=== PATIENT | male | born 1960 | race Caucasian/White ===

== ENCOUNTER 2021-11-29 11:57 | Emergency (ER) | payer OTHER ==
[~2021-11-29] VITALS: Ht 167.6 cm; Wt 90.7 kg
[~2021-11-29 11:57] MED LIST: GLIM4TAB PO; LOSA50TA3 PO; METO25TA3 PO; NEU300 PO; NOR10 PO; OMEP20CA15 PO; ROSU10TA2 PO; VITD2000 PO; Zestoretic PO
[2021-11-29 12:11] VITALS: BP_SYST 182
--- NOTE | 2021-11-29 12:12 | NUR ---
Patient to ER bed 2 for evaluation. Side rails up. Report given to Mathew HAWTHORNE.
[2021-11-29] MEDS ORDERED: NS 500 ML IV ONE (12:15)
--- NOTE | 2021-11-29 12:16 | NUR ---
Pt asked about stuttering and slurred speech-states current speech pattern is normal for him.
--- NOTE | 2021-11-29 12:30 | NUR ---
RECEIVED PT IN BED #2 FROM HOME WITH CC OF COUGH AND FLU LIKE SYMPTOMS FOR THE PAST FEW DAYS. PT IS STABLE, NAD, VSS, AAOX4, AWAITING PLAN OF CARE WITH DISPOSITION.
--- NOTE | 2021-11-29 12:35 | NUR ---
ED MD ZIEGLER AT BEDSIDE
[2021-11-29 12:41] LABS: BASOPHILS % (AUTO) 0.4 % (0.0-2.0); HEMATOCRIT 40.1 % (36-54); HEMOGLOBIN 13.7 g/dL (14.0-18.0); LYMPHOCYTES # (AUTO) 0.5 K/uL (1.0-5.5); LYMPHOCYTES % (AUTO) 5.4 % (20.5-51.5); MEAN CORPUSCULAR HEMOGLOBIN 30 pg (27-31); MEAN CORPUSCULAR HGB CONC 34 % (32-36); MEAN CORPUSCULAR VOLUME 89 fL (79.0-98.0); MONOCYTES # (AUTO) 0.7 K/uL (0.0-1.0); MONOCYTES % (AUTO) 7.7 % (1.7-9.3); NEUTROPHILS # (AUTO) 8.1 K/uL (1.8-7.7); NEUTROPHILS % (AUTO) 86.5 % (40.0-70.0); PLATELET COUNT (AUTO) 176 K/uL (130-430); RED BLOOD CELL COUNT(AUTO) 4.54 MIL/uL (4.2-6.2); RED CELL DISTRIBUTION WIDTH 13.4 % (9.0-15.0); WHITE BLOOD COUNT (AUTO) 9.4 K/uL (4.8-10.8)
[2021-11-29 12:50] VITALS: BP_SYST 160
[2021-11-29 13:28] LABS: CALCIUM 8.3 mg/dL (8.4-11.0); CREATININE 2.12 mg/dL (0.55-1.30); POTASSIUM 3.5 mmol/L (3.5-5.1)
[2021-11-29 13:34] LABS: ALBUMIN 3.1 g/dL (3.4-4.8); TOTAL BILIRUBIN 0.3 mg/dL (0.0-1.0)
[2021-11-29] MEDS ORDERED: NIRM1TAB PO (13:48)
--- NOTE | 2021-11-29 14:03 | NUR ---
Patient given written and verbal discharge instructions and verbalizes understanding. ER MD discussed with patient the results and treatment provided. Patient in stable condition. ID arm band removed. IV catheter removed intact and dressing applied, no active bleeding. Rx given. Patient educated on pain management and to follow up with PMD. Pain Scale 0/10. Opportunity for questions provided and answered. Medication side effect fact sheet provided.
== END 2021-11-29 14:03 | disposition home or self-care (01) ==
LOC: SED 11:57
DX: U07.1 COVID-19 (principal); R05.9 Cough, unspecified; R53.83 Other fatigue; N18.9 Chronic kidney disease, unspecified; E11.22 Type 2 diabetes mellitus with diabetic chronic kidney disease
CPT/HCPCS: 36415; 71045; 80053; 85025; 87426; 96360; 99284; J7030

== ENCOUNTER 2022-05-27 08:38 | Inpatient (IN) | payer OTHER ==
[~2022-05-27] VITALS: Ht 167.6 cm; Wt 99.8 kg
[~2022-05-27 08:38] MED LIST changes: +NIRM1TAB PO
[2022-05-27 08:46] VITALS: BP_SYST 173
--- NOTE | 2022-05-27 09:00 | NUR ---
PT WAS PUT ON BED 8.
[2022-05-27 09:32] LABS: BASOPHILS % (AUTO) 0.3 % (0.0-2.0); HEMATOCRIT 39.2 % (36-54); HEMOGLOBIN 13.6 g/dL (14.0-18.0); LYMPHOCYTES # (AUTO) 0.7 K/uL (1.0-5.5); LYMPHOCYTES % (AUTO) 6.4 % (20.5-51.5); MEAN CORPUSCULAR HEMOGLOBIN 31 pg (27-31); MEAN CORPUSCULAR HGB CONC 35 % (32-36); MEAN CORPUSCULAR VOLUME 88 fL (79.0-98.0); MONOCYTES # (AUTO) 0.5 K/uL (0.0-1.0); MONOCYTES % (AUTO) 4.5 % (1.7-9.3); NEUTROPHILS % (AUTO) 88.8 % (40.0-70.0); PLATELET COUNT (AUTO) 189 K/uL (130-430); RED BLOOD CELL COUNT(AUTO) 4.44 MIL/uL (4.2-6.2); RED CELL DISTRIBUTION WIDTH 12.7 % (9.0-15.0); WHITE BLOOD COUNT (AUTO) 11.2 K/uL (4.8-10.8)
[2022-05-27 09:46] LABS: ANION GAP 12 (5-15); CALCIUM 8.3 mg/dL (8.4-11.0); CHLORIDE 94 mmol/L (98-107); UREA NITROGEN, BLOOD 33 mg/dL (8-21)
[2022-05-27 09:51] LABS: PROTHROMBIN TIME 10.4 SECS (9.5-12.5)
[2022-05-27 09:58] LABS: ALANINE AMINOTRANSFERASE 15 U/L (12-78); ALBUMIN 3.4 g/dL (3.4-4.8); ASPARTATE AMINOTRANSFERASE 23 U/L (10-37); TOTAL BILIRUBIN 0.9 mg/dL (0.0-1.0)
[2022-05-27 10:01] LABS: GFR AFRICAN AMERICAN 39 mL/min (>90)
[2022-05-27 10:02] LABS: GLUCOSE 442 mg/dL (70-99)
--- NOTE | 2022-05-27 10:05 | NUR ---
CTITICAL REPORT: [id number]. ALMEIDA NOTIFIED BEDSIDE STAT.
[2022-05-27 10:14] LABS: BILIRUBIN,URINE NEGATIVE (NEGATIVE); BLOOD, URINE 1+ (NEGATIVE); CLARITY/URINE CLEAR (CLEAR); COLOR,URINE YELLOW (YELLOW); GLUCOSE,URINE 3+ (NEGATIVE); KETONES,URINE TRACE (NEGATIVE); LEUKOCYTE ESTERASE ,URINE NEGATIVE (NEGATIVE); NITRITE, URINE NEGATIVE (NEGATIVE); PROTEIN URINE 3+ (NEGATIVE)
[2022-05-27 10:27] LABS: BACTERIA,URINE RARE /HPF (None Seen); MUCUS,URINE 1+ /LPF (None Seen); RBC,URINE 0-3 /HPF (0-3); WBC,URINE 0-3 /HPF (0-3)
[2022-05-27] MEDS ORDERED: NACL 0.9% 2,000 ML IV ONE (10:45)
[2022-05-27] MEDS ORDERED: PIPERACILLIN/TAZO 3.375 GM in NS 50 ML IV ONE (10:45)
[2022-05-27] MEDS ORDERED: metroNIDAZOLE 500 mg/NS 100 ML IV ONE (10:45)
[2022-05-27] MEDS ORDERED: PIPERACILLIN/TAZOBACTAM 3.375 GM/VIAL (ZOSYN) IV ONE (11:06)
--- NOTE | 2022-05-27 11:23 | NUR ---
Admit bed requested Patient will be admitted to care of . Admitted to M/S unit. Diagnosis DIVERTICULITIS Inpatient (Yes) Observation (No) Orientation concerns or request close to nursing station (No) Covid Status NEG On vent or bipap NO Isolation requirements STANDARD Needs a sitter NO From Home (Yes) Requires Dialysis (No) Med Rec Completed (Yes)
[2022-05-27] MEDS ORDERED: ACETAMINOPHEN 325 MG TABLET PO PRN (11:45)
[2022-05-27] MEDS ORDERED: MORPHINE 2 MG/ML INJ. SYRINGE IVP PRN ×2 (11:45)
[2022-05-27] MEDS ORDERED: DOCUSATE SODIUM 100 MG CAPSULE PO PRN (11:45)
[2022-05-27] MEDS ORDERED: cloNIDine HCL 0.1 MG TABLET PO PRN (11:45)
[2022-05-27] MEDS ORDERED: LORazepam 2 MG/ML VIAL IVP PRN (11:45)
[2022-05-27] MEDS ORDERED: MUPIROCIN 2% TOPICAL OINTMENT 22 GM NS PRN (11:45)
[2022-05-27] MEDS ORDERED: MAGNESIUM SULFATE 50 ML IV PRN (11:45)
[2022-05-27] MEDS ORDERED: DEXTROSE 50% JECT 50 ML DISP.SYRIN IVP PRN (11:45)
--- NOTE | 2022-05-27 13:14 | NUR ---
GOT ROOM 106, SENT PT TO FLOOR WITH EMT. REPORT ENDORSED BEDSIDE TO RN/FLOOR.
--- NOTE | 2022-05-27 13:15 | NUR ---
GI CONSULT CALLED PAG[facility] DANII REILLY AT [phone] SPOKE WITH SIMON DX DIVERTICULITIS.
[2022-05-27] MEDS: INSULIN LISPRO SLIDING SCALE 100 UNITS/ML, 3 ML VIAL (humaLOG) SUBCUT PRN ×2 (13:43→21:10)
[2022-05-27] MEDS: metroNIDAZOLE 500 mg/NS 100 ML IV SCH ×2 (13:45→23:50)
[2022-05-27] MEDS: cefTRIAXone 1 GM IVPB PREMIX 50 ML IV SCH (13:45)
[2022-05-27] MEDS: NACL 0.9% 1,000 ML IV SCH ×2 (13:49→21:11)
[2022-05-27 14:39] VITALS: BP_SYST 146
--- NOTE | 2022-05-27 15:31 | NUR ---
ADMISSION OF A 61 YEAR OLD MALE UNDER THE CARE OF DOCTOR ASHLEY WHO SAYS HE FEELS A SENSE OF COLD ALL THE TIME. HIS PRIMARY DIAGNOSIS IS DIVERTICULITIS. HE IS ON A CLEAR LIQUID DIET WANTS TO ADVANCE HIS DIET OF NOW.
[2022-05-27] MEDS: ONDANSETRON HCL 4 MG/2 ML VIAL IVP PRN (18:23)
[2022-05-27 18:33] VITALS: BP_SYST 154
[2022-05-27 20:30] VITALS: BP_SYST 135
[2022-05-27] MEDS: ZOLPIDEM TARTRATE 5 MG TABLET PO PRN (21:07)
[2022-05-27] MEDS: GABAPENTIN 300 MG CAPSULE PO SCH (21:10)
[2022-05-27] MEDS: HEPARIN SODIUM,PORCINE 5,000 UNITS/ML VIAL SUBCUT SCH (21:12)
--- NOTE | 2022-05-27 21:15 | NUR ---
PATIENT AWAKE ALERT USING URINAL on clear liquid diet po apple juice given per Request comfort measures implemented assist for position change chest movement symmetrical / .
--- NOTE | 2022-05-28 00:07 | NUR ---
Patient asking for AMBIEN for sleep aide and did give 10 MG po per MD order .
[2022-05-28 00:10] VITALS: BP_SYST 141
--- NOTE | 2022-05-28 04:44 | NUR ---
HOURLY ROUNDING patient awake sips of juice po given comfort measures implemented call salvador given to patient .
[2022-05-28] MEDS: metroNIDAZOLE 500 mg/NS 100 ML IV SCH ×3 (05:55→22:11)
[2022-05-28] MEDS: INSULIN LISPRO SLIDING SCALE 100 UNITS/ML, 3 ML VIAL (humaLOG) SUBCUT PRN ×4 (05:59→21:37)
[2022-05-28 07:37] LABS: CALCIUM 8.5 mg/dL (8.4-11.0); CREATININE 1.95 mg/dL (0.55-1.30)
[2022-05-28] MEDS: NACL 0.9% 1,000 ML IV SCH ×2 (07:45→18:50)
[2022-05-28 08:00] VITALS: BP_SYST 145
[2022-05-28 08:24] LABS: BASOPHILS # (AUTO) 0.1 K/uL (0.0-0.2); BASOPHILS % (AUTO) 0.6 % (0.0-2.0); EOSINOPHILS % (AUTO) 0.3 % (0.0-4.0); HEMATOCRIT 36.4 % (36-54); LYMPHOCYTES # (AUTO) 1.3 K/uL (1.0-5.5); MEAN CORPUSCULAR HEMOGLOBIN 31 pg (27-31); MEAN CORPUSCULAR HGB CONC 36 % (32-36); MEAN CORPUSCULAR VOLUME 88 fL (79.0-98.0); MONOCYTES # (AUTO) 0.6 K/uL (0.0-1.0); MONOCYTES % (AUTO) 6.8 % (1.7-9.3); NEUTROPHILS # (AUTO) 7.3 K/uL (1.8-7.7); NEUTROPHILS % (AUTO) 78.3 % (40.0-70.0); PLATELET COUNT (AUTO) 184 K/uL (130-430); RED BLOOD CELL COUNT(AUTO) 4.16 MIL/uL (4.2-6.2); RED CELL DISTRIBUTION WIDTH 12.8 % (9.0-15.0); WHITE BLOOD COUNT (AUTO) 9.3 K/uL (4.8-10.8)
[2022-05-28] MEDS: GABAPENTIN 300 MG CAPSULE PO SCH ×2 (09:46→21:33)
[2022-05-28] MEDS: amLODIPine BESYLATE 10 MG TABLET PO SCH (09:47)
[2022-05-28] MEDS: LOSARTAN POTASSIUM 50 MG TABLET (COZAAR) PO SCH (09:47)
[2022-05-28] MEDS: HEPARIN SODIUM,PORCINE 5,000 UNITS/ML VIAL SUBCUT SCH ×2 (09:50→21:35)
--- NOTE | 2022-05-28 11:36 | NUR ---
CLEANSED AFTER X1 LAURELEA
[2022-05-28] MEDS: POTASSIUM CHLORIDE 20 MEQ TAB.PRT.SR PO PRN (12:04)
[2022-05-28] MEDS: cefTRIAXone 1 GM IVPB PREMIX 50 ML IV SCH (14:15)
[2022-05-28 16:33] VITALS: BP_SYST 124
[2022-05-28] MEDS: ONDANSETRON HCL 4 MG/2 ML VIAL IVP PRN (18:46)
--- NOTE | 2022-05-28 19:51 | NUR ---
PT STILL C/O OF NAUSEA AND DIARRHEA, PT HAD 2X DIARRHEA. GIVEN ZOFRAN. ENDORSED TO NIGHT NURSE.
[2022-05-28 20:00] VITALS: BP_SYST 148
[2022-05-28] MEDS: ZOLPIDEM TARTRATE 5 MG TABLET PO PRN (21:47)
[2022-05-29 00:29] VITALS: BP_SYST 127
[2022-05-29] MEDS: NACL 0.9% 1,000 ML IV SCH ×3 (04:04→17:46)
[2022-05-29] MEDS: INSULIN LISPRO SLIDING SCALE 100 UNITS/ML, 3 ML VIAL (humaLOG) SUBCUT PRN ×4 (06:16→21:45)
[2022-05-29] MEDS: metroNIDAZOLE 500 mg/NS 100 ML IV SCH ×3 (06:17→23:18)
[2022-05-29 06:46] LABS: BASOPHILS % (AUTO) 0.6 % (0.0-2.0); EOSINOPHILS # (AUTO) 0.1 K/uL (0.0-0.4); HEMATOCRIT 38.8 % (36-54); HEMOGLOBIN 13.8 g/dL (14.0-18.0); LYMPHOCYTES # (AUTO) 1.5 K/uL (1.0-5.5); LYMPHOCYTES % (AUTO) 19.2 % (20.5-51.5); MEAN CORPUSCULAR HEMOGLOBIN 31 pg (27-31); MEAN CORPUSCULAR HGB CONC 36 % (32-36); MEAN CORPUSCULAR VOLUME 88 fL (79.0-98.0); MONOCYTES # (AUTO) 0.5 K/uL (0.0-1.0); MONOCYTES % (AUTO) 6.4 % (1.7-9.3); NEUTROPHILS # (AUTO) 5.8 K/uL (1.8-7.7); NEUTROPHILS % (AUTO) 72.8 % (40.0-70.0); PLATELET COUNT (AUTO) 196 K/uL (130-430); RED BLOOD CELL COUNT(AUTO) 4.43 MIL/uL (4.2-6.2); RED CELL DISTRIBUTION WIDTH 13.4 % (9.0-15.0)
[2022-05-29 07:13] LABS: CALCIUM 8.4 mg/dL (8.4-11.0); CREATININE 1.81 mg/dL (0.55-1.30)
[2022-05-29] MEDS: ONDANSETRON HCL 4 MG/2 ML VIAL IVP PRN ×2 (07:51→17:41)
[2022-05-29 08:24] VITALS: BP_SYST 154
[2022-05-29] MEDS: GABAPENTIN 300 MG CAPSULE PO SCH ×2 (09:32→21:41)
[2022-05-29] MEDS: LOSARTAN POTASSIUM 50 MG TABLET (COZAAR) PO SCH (09:32)
[2022-05-29] MEDS: amLODIPine BESYLATE 10 MG TABLET PO SCH (09:33)
[2022-05-29] MEDS: HEPARIN SODIUM,PORCINE 5,000 UNITS/ML VIAL SUBCUT SCH ×2 (09:36→21:43)
[2022-05-29 11:38] VITALS: BP_SYST 151
[2022-05-29] MEDS: cefTRIAXone 1 GM IVPB PREMIX 50 ML IV SCH (13:35)
[2022-05-29 15:25] VITALS: BP_SYST 128
--- NOTE | 2022-05-29 18:06 | NUR ---
SPOKE WITH PATIENT'S DAUGHTER AIDA WAITE TO GET INPUT IF PT USUALLY SIGNS CONSENT FOR HIMSELF. AIDA SAID PT SIGNS CONSENT FOR HIMSELF. TOLD ZAK ABOUT THE PROCEDURE AND PT'S STATUS.
[2022-05-29] MEDS: POTASSIUM CHLORIDE 20 MEQ TAB.PRT.SR PO PRN (18:42)
--- NOTE | 2022-05-29 18:42 | NUR ---
40 meq kdur given po. for k level of 3.2
[2022-05-29] MEDS: ZOLPIDEM TARTRATE 5 MG TABLET PO PRN (21:41)
[2022-05-30 02:27] VITALS: BP_SYST 150
[2022-05-30] MEDS: metroNIDAZOLE 500 mg/NS 100 ML IV SCH ×2 (06:12→15:21)
[2022-05-30] MEDS: NACL 0.9% 1,000 ML IV SCH (06:12)
[2022-05-30 06:49] LABS: CALCIUM 7.4 mg/dL (8.4-11.0); CREATININE 1.6 mg/dL (0.55-1.30)
[2022-05-30 06:56] LABS: BASOPHILS % (AUTO) 0.5 % (0.0-2.0); EOSINOPHILS # (AUTO) 0.1 K/uL (0.0-0.4); HEMOGLOBIN 12.9 g/dL (14.0-18.0); LYMPHOCYTES # (AUTO) 1.5 K/uL (1.0-5.5); LYMPHOCYTES % (AUTO) 17.8 % (20.5-51.5); MEAN CORPUSCULAR HEMOGLOBIN 31 pg (27-31); MEAN CORPUSCULAR HGB CONC 36 % (32-36); MEAN CORPUSCULAR VOLUME 87 fL (79.0-98.0); MONOCYTES # (AUTO) 0.5 K/uL (0.0-1.0); MONOCYTES % (AUTO) 6.2 % (1.7-9.3); NEUTROPHILS # (AUTO) 6.1 K/uL (1.8-7.7); NEUTROPHILS % (AUTO) 74.5 % (40.0-70.0); PLATELET COUNT (AUTO) 176 K/uL (130-430); RED BLOOD CELL COUNT(AUTO) 4.14 MIL/uL (4.2-6.2); RED CELL DISTRIBUTION WIDTH 12.7 % (9.0-15.0); WHITE BLOOD COUNT (AUTO) 8.2 K/uL (4.8-10.8)
[2022-05-30] MEDS ORDERED: MEPERIDINE 100 MG INJ. 100 MG/ML VIAL ONE (08:21)
[2022-05-30] MEDS: HEPARIN SODIUM,PORCINE 5,000 UNITS/ML VIAL SUBCUT SCH (09:00)
[2022-05-30] MEDS ORDERED: PRO40 PO (10:22)
[2022-05-30] MEDS: GABAPENTIN 300 MG CAPSULE PO SCH (10:36)
[2022-05-30] MEDS: amLODIPine BESYLATE 10 MG TABLET PO SCH (10:37)
[2022-05-30] MEDS: LOSARTAN POTASSIUM 50 MG TABLET (COZAAR) PO SCH (10:37)
[2022-05-30] MEDS: MIDAZOLAM HCL 5 MG/5 ML VIAL ONE ×3 (11:05→11:13)
[2022-05-30] MEDS ORDERED: PANTOPRAZOLE SODIUM 40 MG TAB PO ONE (11:30)
[2022-05-30] MEDS ORDERED: ONDA-8 TL (12:47)
[2022-05-30] MEDS: cefTRIAXone 1 GM IVPB PREMIX 50 ML IV SCH (14:57)
[2022-05-30 19:22] VITALS: BP_SYST 145
--- NOTE | 2022-05-30 20:00 | NUR ---
NOTES PATIENT DISCHARGED HOME ORDERED WITH STABLE VITAL SIGNS VIA WHEELCHAIR WITH HIS SON TO THEIR PRIVATE CAR OUTSIDE. DISCHARGE INSTRUCTIONS GIVEN TO BOTH PATIENT AND SON AND THEY VERBALIZED UNDERSTANDING. IV D/CD AND BELONGINGS CHECKED. ALL NEEDS MET.
[2022-05-31] MEDS ORDERED: PANTOPRAZOLE SODIUM 40 MG TAB PO SCH (09:00)
== END 2022-05-30 20:00 | disposition home or self-care (01) | DRG 391 ==
LOC: SED 08:38 → STU 11:21 → SMU 12:31
PROVIDERS: ADMIT General Practice; ATTEND General Practice
PROC: 0DB78ZX Excision of Stomach, Pylorus, Via Natural or Artificial Opening Endoscopic, Diagnostic (ICD-10-PCS; principal; 2022-05-30 13:15)
DX: K57.92 Diverticulitis of intestine, part unspecified, without perforation or abscess without bleeding (principal); N17.0 Acute kidney failure with tubular necrosis; E87.1 Hypo-osmolality and hyponatremia; K29.70 Gastritis, unspecified, without bleeding; K20.90 Esophagitis, unspecified without bleeding; E78.00 Pure hypercholesterolemia, unspecified; E11.40 Type 2 diabetes mellitus with diabetic neuropathy, unspecified; E78.5 Hyperlipidemia, unspecified; E83.51 Hypocalcemia; E11.65 Type 2 diabetes mellitus with hyperglycemia; Z20.822 Contact with and (suspected) exposure to COVID-19; I12.9 Hypertensive chronic kidney disease with stage 1 through stage 4 chronic kidney disease, or unspecified chronic kidney disease; E11.22 Type 2 diabetes mellitus with diabetic chronic kidney disease; N18.9 Chronic kidney disease, unspecified; E66.9 Obesity, unspecified; E87.6 Hypokalemia; Z90.49 Acquired absence of other specified parts of digestive tract; Z68.35 Body mass index [BMI] 35.0-35.9, adult
CPT/HCPCS: 36415; 43239; 71045; 76376; 80048; 80053; 81000; 82009; 82962; 83036; 83605; 83735; 84484; 85025; 85610-TC; 85730-TC; 87040; 87081; 87086; 88305; 88312; 88313; 93005; 96365; 96375; 99285; J0696; J1644; J2175; J2250; J2270; J2405; J2543; J3490; J7030

== ENCOUNTER 2022-06-20 10:56 | Inpatient (IN) | payer OTHER ==
[~2022-06-20] VITALS: Ht 167.6 cm; Wt 90.7 kg
[~2022-06-20 10:56] MED LIST changes: -NIRM1TAB PO; +ONDA-8 TL; +PRO40 PO
[2022-06-20 11:00] VITALS: BP_SYST 157
--- NOTE | 2022-06-20 11:00 | NUR ---
BROUGHT BACK TO BED #2 VIA WHEELCHAIR, PLACED IN BED AND TRIAGED. REPORT GIVEN TO HOLLY
--- NOTE | 2022-06-20 11:21 | NUR ---
PT BIB FRIEND AWAKE AND ALERT AOX4. NO SOB OR DISTRESS. PT C/O PAIN TO CHEST 5/10, GENERALIZED WEAKNESS AND LOSS OF APPETIT. PT STATES HE BEEN FEELING THIS WAY FOR YEARS. PT ALSO STATES HE HAS N/V AND DIAHREA.
--- NOTE | 2022-06-20 11:23 | NUR ---
MD DR MERCEDES AT BEDSIDE
[2022-06-20] MEDS ORDERED: FAMOTIDINE 20 MG TABLET PO ONE (11:45)
[2022-06-20] MEDS ORDERED: MAG-AL HYDROX/SIMETH 30 ML UDC PO ONE (11:45)
[2022-06-20 12:23] LABS: BASOPHILS % (AUTO) 0.5 % (0.0-2.0); EOSINOPHILS % (AUTO) 0.4 % (0.0-4.0); HEMATOCRIT 40.8 % (36-54); HEMOGLOBIN 14.2 g/dL (14.0-18.0); LYMPHOCYTES # (AUTO) 0.9 K/uL (1.0-5.5); LYMPHOCYTES % (AUTO) 9.2 % (20.5-51.5); MEAN CORPUSCULAR HEMOGLOBIN 31 pg (27-31); MEAN CORPUSCULAR HGB CONC 35 % (32-36); MEAN CORPUSCULAR VOLUME 90 fL (79.0-98.0); MONOCYTES # (AUTO) 0.5 K/uL (0.0-1.0); MONOCYTES % (AUTO) 5.6 % (1.7-9.3); NEUTROPHILS # (AUTO) 7.9 K/uL (1.8-7.7); NEUTROPHILS % (AUTO) 84.3 % (40.0-70.0); PLATELET COUNT (AUTO) 192 K/uL (130-430); RED BLOOD CELL COUNT(AUTO) 4.54 MIL/uL (4.2-6.2); RED CELL DISTRIBUTION WIDTH 13.6 % (9.0-15.0); WHITE BLOOD COUNT (AUTO) 9.4 K/uL (4.8-10.8)
[2022-06-20 12:34] LABS: ANION GAP 6 (5-15); CALCIUM 8.6 mg/dL (8.4-11.0); CHLORIDE 99 mmol/L (98-107); GFR AFRICAN AMERICAN 41 mL/min (>90); GLUCOSE 286 mg/dL (70-99); UREA NITROGEN, BLOOD 16 mg/dL (8-21)
[2022-06-20] MEDS ORDERED: NACL 0.9% 1,000 ML IV ONE (12:45)
[2022-06-20 12:46] LABS: ALANINE AMINOTRANSFERASE 12 U/L (12-78); ALBUMIN 3.1 g/dL (3.4-4.8); ASPARTATE AMINOTRANSFERASE 13 U/L (10-37); LIPASE 160 U/L (73-393); PHOSPHORUS 3.2 mg/dL (2.7-4.5); THYROID STIMULATING HORMONE 0.96 uIu/mL (0.34-4.82); TOTAL BILIRUBIN 0.8 mg/dL (0.0-1.0)
[2022-06-20 14:01] LABS: BILIRUBIN,URINE NEGATIVE (NEGATIVE); BLOOD, URINE TRACE (NEGATIVE); CLARITY/URINE SL CLOUDY (CLEAR); COLOR,URINE YELLOW (YELLOW); GLUCOSE,URINE 1+ (NEGATIVE); KETONES,URINE NEGATIVE (NEGATIVE); LEUKOCYTE ESTERASE ,URINE NEGATIVE (NEGATIVE); NITRITE, URINE NEGATIVE (NEGATIVE); PROTEIN URINE 3+ (NEGATIVE); UROBILINOGEN,URINE 0.2 (0.2-1.0)
[2022-06-20 14:11] LABS: BACTERIA,URINE FEW /HPF (None Seen)
--- NOTE | 2022-06-20 14:15 | NUR ---
JULIA COLLECTED AND SENT TO LAB
--- NOTE | 2022-06-20 14:24 | NUR ---
Admit bed requested Patient will be admitted to care of Dr. RAMIREZ. Admitted to MED SURGE unit. Diagnosis RENAL INSUFFIGENCY Inpatient (Yes or No) YES Observation (Yes or No) NO Orientation concerns or request close to nursing station (Yes or No) NO Covid Status PENDING On vent or bipap NO Isolation requirements NO Needs a sitter NO From Home (Yes or if No enter name of facility) HOME Requires Dialysis (Yes or No) NO Med Rec Completed (Yes of No) YES
--- NOTE | 2022-06-20 14:31 | NUR ---
FLU COLLECTED AND SENT TO LAB
[2022-06-20] MEDS ORDERED: LORazepam 2 MG/ML VIAL IVP PRN (16:15)
[2022-06-20] MEDS ORDERED: MUPIROCIN 2% TOPICAL OINTMENT 22 GM NS PRN (16:15)
[2022-06-20] MEDS ORDERED: ONDANSETRON HCL 4 MG/2 ML VIAL IVP PRN (16:15)
[2022-06-20] MEDS ORDERED: POTASSIUM CHLORIDE 20 MEQ TAB.PRT.SR PO PRN (16:15)
[2022-06-20] MEDS ORDERED: MORPHINE 2 MG/ML INJ. SYRINGE IVP PRN ×2 (16:15)
[2022-06-20] MEDS ORDERED: amLODIPine BESYLATE 10 MG TABLET PO ONE (16:15)
[2022-06-20] MEDS ORDERED: NALOXONE HCL 0.4 MG/ML AMP (NARCAN) IVP PRN ×2 (16:15)
[2022-06-20] MEDS ORDERED: ACETAMINOPHEN 325 MG TABLET PO PRN ×2 (16:15→16:30)
[2022-06-20] MEDS ORDERED: DOCUSATE SODIUM 100 MG CAPSULE PO PRN (16:15)
[2022-06-20] MEDS ORDERED: MAGNESIUM SULFATE 50 ML IV PRN (16:15)
--- NOTE | 2022-06-20 16:19 | NUR ---
Patient will be admitted to care of DR RAMIREZ. Admitted to MED SURGE unit. Will go to room 111B. Belongings list completed. Complete and up to date summary report printed. SBAR report to be given at bedside with opportunity for questions.
--- NOTE | 2022-06-20 16:34 | NUR ---
CONSULTATION PAGED/CALLED Reason for Consultation: RENAL INSUFF Person Who was Notified: SIMON Consulting Physician: SRINIVASA ERAZO Ordering Physician: HADLEY RAMIREZ
[2022-06-20 17:05] VITALS: BP_SYST 163
[2022-06-20 19:50] VITALS: BP_SYST 138
[2022-06-20] MEDS: NACL 0.9% 1,000 ML IV SCH (19:58)
[2022-06-20 20:00] VITALS: BP_SYST 138
[2022-06-20] MEDS: ZOLPIDEM TARTRATE 5 MG TABLET PO PRN (21:54)
[2022-06-20] MEDS: HEPARIN SODIUM,PORCINE 5,000 UNITS/ML VIAL SUBCUT SCH (21:58)
[2022-06-20] MEDS: INSULIN REGULAR, HUMAN 100 UNITS/ML, 3 ML VIAL (humuLIN R) SUBCUT PRN (22:09)
[2022-06-20] MEDS: ATORVASTATIN 20 MG TABLET PO SCH (22:10)
[2022-06-20] MEDS: GABAPENTIN 300 MG CAPSULE PO SCH (22:10)
[2022-06-21 04:06] VITALS: BP_SYST 136
--- NOTE | 2022-06-21 05:58 | NUR ---
Pt. needs met this shift, vss, call light in reach. Slept well, will cont. to monitor.
[2022-06-21] MEDS: INSULIN REGULAR, HUMAN 100 UNITS/ML, 3 ML VIAL (humuLIN R) SUBCUT PRN (06:14)
--- NOTE | 2022-06-21 06:55 | NUR ---
CALLED THE [facility] CONSULT AGAIN TO DR SNOW, [employer]SEM[employer] MACHINE [employer] FOR THE GROUP. SPOKE TO EVELYN.
[2022-06-21 08:21] LABS: BASOPHILS # (AUTO) 0.1 K/uL (0.0-0.2); BASOPHILS % (AUTO) 0.7 % (0.0-2.0); EOSINOPHILS # (AUTO) 0.1 K/uL (0.0-0.4); EOSINOPHILS % (AUTO) 1.1 % (0.0-4.0); HEMATOCRIT 40.9 % (36-54); HEMOGLOBIN 14.2 g/dL (14.0-18.0); MEAN CORPUSCULAR HEMOGLOBIN 31 pg (27-31); MEAN CORPUSCULAR HGB CONC 35 % (32-36); MEAN CORPUSCULAR VOLUME 90 fL (79.0-98.0); MONOCYTES # (AUTO) 0.6 K/uL (0.0-1.0); MONOCYTES % (AUTO) 7.3 % (1.7-9.3); NEUTROPHILS # (AUTO) 5.6 K/uL (1.8-7.7); NEUTROPHILS % (AUTO) 66.9 % (40.0-70.0); PLATELET COUNT (AUTO) 174 K/uL (130-430); RED BLOOD CELL COUNT(AUTO) 4.56 MIL/uL (4.2-6.2); RED CELL DISTRIBUTION WIDTH 13.4 % (9.0-15.0); WHITE BLOOD COUNT (AUTO) 8.4 K/uL (4.8-10.8)
[2022-06-21 08:32] LABS: CALCIUM 8.5 mg/dL (8.4-11.0); CREATININE 1.77 mg/dL (0.55-1.30)
[2022-06-21] MEDS: HEPARIN SODIUM,PORCINE 5,000 UNITS/ML VIAL SUBCUT SCH ×2 (09:00→20:33)
[2022-06-21 12:30] VITALS: BP_SYST 154
[2022-06-21] MEDS: NACL 0.9% 1,000 ML IV SCH ×2 (13:59→15:32)
[2022-06-21] MEDS: cefTRIAXone 1 GM in D5W 50 ML IV SCH (14:00)
[2022-06-21] MEDS: LOSARTAN POTASSIUM 50 MG TABLET (COZAAR) PO SCH (14:01)
[2022-06-21] MEDS: GABAPENTIN 300 MG CAPSULE PO SCH ×2 (14:01→20:30)
[2022-06-21] MEDS: METOPROLOL SUCCINATE 25 MG TAB.SR.24H (TOPROL XL) PO SCH (14:03)
[2022-06-21] MEDS: amLODIPine BESYLATE 10 MG TABLET PO SCH (14:05)
[2022-06-21 16:30] VITALS: BP_SYST 141
[2022-06-21 20:00] VITALS: BP_SYST 143
[2022-06-21] MEDS: ZOLPIDEM TARTRATE 5 MG TABLET PO PRN (20:30)
[2022-06-21] MEDS: ATORVASTATIN 20 MG TABLET PO SCH (20:30)
--- NOTE | 2022-06-21 21:26 | NUR ---
Patient in bed. No acute distress noted. Patient compliant with all medications. Will continue to monitor.
[2022-06-22 00:15] VITALS: BP_SYST 138
[2022-06-22] MEDS: NACL 0.9% 1,000 ML IV SCH ×2 (04:15→18:16)
[2022-06-22 07:33] LABS: BASOPHILS # (AUTO) 0.1 K/uL (0.0-0.2); BASOPHILS % (AUTO) 0.6 % (0.0-2.0); EOSINOPHILS # (AUTO) 0.1 K/uL (0.0-0.4); EOSINOPHILS % (AUTO) 1.4 % (0.0-4.0); HEMATOCRIT 40.3 % (36-54); HEMOGLOBIN 13.7 g/dL (14.0-18.0); LYMPHOCYTES # (AUTO) 1.4 K/uL (1.0-5.5); LYMPHOCYTES % (AUTO) 17.3 % (20.5-51.5); MEAN CORPUSCULAR HEMOGLOBIN 31 pg (27-31); MEAN CORPUSCULAR HGB CONC 34 % (32-36); MEAN CORPUSCULAR VOLUME 91 fL (79.0-98.0); MONOCYTES # (AUTO) 0.7 K/uL (0.0-1.0); MONOCYTES % (AUTO) 8.7 % (1.7-9.3); NEUTROPHILS # (AUTO) 5.7 K/uL (1.8-7.7); PLATELET COUNT (AUTO) 182 K/uL (130-430); RED BLOOD CELL COUNT(AUTO) 4.42 MIL/uL (4.2-6.2); RED CELL DISTRIBUTION WIDTH 13.5 % (9.0-15.0); WHITE BLOOD COUNT (AUTO) 7.9 K/uL (4.8-10.8)
[2022-06-22 07:42] LABS: CALCIUM 8.2 mg/dL (8.4-11.0); CREATININE 1.53 mg/dL (0.55-1.30)
[2022-06-22 08:01] VITALS: BP_SYST 146
--- NOTE | 2022-06-22 08:01 | NUR ---
INITIAL ROUNDS Received pt AAOx4, no s/s resp distress, no c/o pain or discomfort. IVF infusing well to RAC at ordered rate with no s/s infiltration to site. Plan of care for the day reviewed with pt-pt verbalized his understanding. Pain management, disease process, skin and safety discussed-teach back done. Side rails up x3, bed alarm on for safety. Call light within reach.
[2022-06-22] MEDS: amLODIPine BESYLATE 10 MG TABLET PO SCH (09:41)
[2022-06-22] MEDS: cefTRIAXone 1 GM in D5W 50 ML IV SCH (09:42)
[2022-06-22] MEDS: LOSARTAN POTASSIUM 50 MG TABLET (COZAAR) PO SCH (09:42)
[2022-06-22] MEDS: METOPROLOL SUCCINATE 25 MG TAB.SR.24H (TOPROL XL) PO SCH (09:42)
[2022-06-22] MEDS: GABAPENTIN 300 MG CAPSULE PO SCH ×2 (09:42→20:52)
[2022-06-22] MEDS: HEPARIN SODIUM,PORCINE 5,000 UNITS/ML VIAL SUBCUT SCH ×2 (09:49→20:56)
[2022-06-22 11:29] VITALS: BP_SYST 143
[2022-06-22] MEDS: INSULIN REGULAR, HUMAN 100 UNITS/ML, 3 ML VIAL (humuLIN R) SUBCUT PRN ×3 (12:32→21:01)
[2022-06-22 15:40] VITALS: BP_SYST 147
--- NOTE | 2022-06-22 18:50 | NUR ---
CLOSING NOTE Pt resting quietly in bed watching television with no s/s resp distress, no c/o pain or discomfort. IVF infusing well at ordered rate with no s/s infiltration to site. Needs met. All precautions remain in place. Call light within reach.
[2022-06-22 19:20] VITALS: BP_SYST 152
--- NOTE | 2022-06-22 19:30 | NUR ---
PM ASSESSMENT; -Pt is ax/o4,resting in bed comfortably.Pt denies any chest pain,pain,sob,or any acute distress. Discussed poc,all safety measures,pt verbalized understanding. Generalized weakness noted. Fall precaution in place. Call light w/in reach,side rails x3,call light w/in reach. Cont to monitor pt. Addendum: 06/22/22 at 2303 by Sandro Alvarez RN RN CORRECTION; PM ASSESSMENT IS AT 1920; NOT AT 1930.
[2022-06-22] MEDS: ATORVASTATIN 20 MG TABLET PO SCH (20:53)
[2022-06-22] MEDS: ZOLPIDEM TARTRATE 5 MG TABLET PO PRN (21:04)
[2022-06-23] VITALS: BP_SYST 142
--- NOTE | 2022-06-23 02:41 | NUR ---
ROUNDS; -Pt is asleep. No s/s any acute distress noted. IVF infusing well, no s/s any infiltration noted. Bed alarmed,side rails x3, call light w/in reach. Cont to monitor pt.
[2022-06-23] MEDS: NACL 0.9% 1,000 ML IV SCH ×2 (05:51→23:15)
[2022-06-23] MEDS: INSULIN REGULAR, HUMAN 100 UNITS/ML, 3 ML VIAL (humuLIN R) SUBCUT PRN ×4 (05:54→23:00)
--- NOTE | 2022-06-23 06:38 | NUR ---
CLOSING NOTES; -Pt is resting in bed comfortably. No s/s pain or any acute distress noted. IVF infusing well, no s/s any infiltration noted. Bed alarmed,side rails x3, call light w/in reach. Will endorse to next nurse to cont care.
[2022-06-23 07:06] LABS: BASOPHILS # (AUTO) 0.1 K/uL (0.0-0.2); BASOPHILS % (AUTO) 0.6 % (0.0-2.0); EOSINOPHILS # (AUTO) 0.2 K/uL (0.0-0.4); EOSINOPHILS % (AUTO) 2.2 % (0.0-4.0); HEMATOCRIT 37.5 % (36-54); HEMOGLOBIN 13.1 g/dL (14.0-18.0); LYMPHOCYTES # (AUTO) 1.5 K/uL (1.0-5.5); LYMPHOCYTES % (AUTO) 18.6 % (20.5-51.5); MEAN CORPUSCULAR HEMOGLOBIN 31 pg (27-31); MEAN CORPUSCULAR HGB CONC 35 % (32-36); MEAN CORPUSCULAR VOLUME 90 fL (79.0-98.0); MONOCYTES # (AUTO) 0.7 K/uL (0.0-1.0); MONOCYTES % (AUTO) 8.3 % (1.7-9.3); NEUTROPHILS # (AUTO) 5.8 K/uL (1.8-7.7); NEUTROPHILS % (AUTO) 70.3 % (40.0-70.0); PLATELET COUNT (AUTO) 171 K/uL (130-430); RED BLOOD CELL COUNT(AUTO) 4.17 MIL/uL (4.2-6.2); RED CELL DISTRIBUTION WIDTH 13.7 % (9.0-15.0); WHITE BLOOD COUNT (AUTO) 8.2 K/uL (4.8-10.8)
[2022-06-23 07:47] LABS: CREATININE 1.45 mg/dL (0.55-1.30)
[2022-06-23 08:00] VITALS: BP_SYST 144
--- NOTE | 2022-06-23 08:00 | NUR ---
ENDORSED TO LOC TO [facility].
--- NOTE | 2022-06-23 08:04 | NUR ---
OPENING NOTES: RECEIVED BEDSIDE SBAR FROM PM SHIFT NURSE, PATIENT IS STABLE NO DISTRESS, RESTING IN BED WITH EYES CLOSED, CALL LIGHT IN REACH, BED LOCKED AND IN LOW POSITION ALL NEEDS BEING KNOWN, WILL MONITOR PATIENT PER ORDERS.
[2022-06-23] MEDS: LOSARTAN POTASSIUM 50 MG TABLET (COZAAR) PO SCH (09:38)
[2022-06-23] MEDS: amLODIPine BESYLATE 10 MG TABLET PO SCH (09:39)
[2022-06-23] MEDS: GABAPENTIN 300 MG CAPSULE PO SCH ×2 (09:39→22:50)
[2022-06-23] MEDS: HEPARIN SODIUM,PORCINE 5,000 UNITS/ML VIAL SUBCUT SCH ×2 (09:50→22:52)
[2022-06-23] MEDS: cefTRIAXone 1 GM in D5W 50 ML IV SCH (09:59)
[2022-06-23] MEDS: METOPROLOL SUCCINATE 25 MG TAB.SR.24H (TOPROL XL) PO SCH (09:59)
[2022-06-23 11:33] VITALS: BP_SYST 137
[2022-06-23 15:21] VITALS: BP_SYST 156
--- NOTE | 2022-06-23 19:40 | NUR ---
Opening note Received SBAR report from MARINE Kuhn. Received patient resting in bed awake, AOx4. No distress and nonlabored breathing on room air. IVF infusing via IV to RAC. Bed is locked in lowest position, side rails up 3x, bed alarm on and call light w/in reach. Presently denies pain and is requesting another blanket, it was provided.
[2022-06-23 20:00] VITALS: BP_SYST 141
--- NOTE | 2022-06-23 20:03 | NUR ---
No changes in status.Patient remain's on bedrest able to feed self but very weak. No pain medication given. Emotional support therapeutic communication given. No visitor's noted. Blood sugar's covered per sliding scale. Continue plan of care. Afebile VSS
[2022-06-23] MEDS: ATORVASTATIN 20 MG TABLET PO SCH (22:50)
[2022-06-23] MEDS: ZOLPIDEM TARTRATE 5 MG TABLET PO PRN (23:14)
--- NOTE | 2022-06-23 23:15 | NUR ---
IVF, Magnesium sulfate Hung new bag of NS and infusing as ordered, no s/sx of infiltration noted. Administered Magnesium sulfate rider as ordered; todays lab result was mag 1.7 , infusing well and tolerating. Patient requested a sleeping pill and apple juice; they were given.
[2022-06-24 00:10] VITALS: BP_SYST 147
[2022-06-24] MEDS: INSULIN REGULAR, HUMAN 100 UNITS/ML, 3 ML VIAL (humuLIN R) SUBCUT PRN ×2 (06:45→12:05)
[2022-06-24 06:56] LABS: BASOPHILS # (AUTO) 0.1 K/uL (0.0-0.2); BASOPHILS % (AUTO) 0.6 % (0.0-2.0); EOSINOPHILS # (AUTO) 0.2 K/uL (0.0-0.4); EOSINOPHILS % (AUTO) 2.6 % (0.0-4.0); HEMATOCRIT 36.8 % (36-54); LYMPHOCYTES # (AUTO) 1.7 K/uL (1.0-5.5); LYMPHOCYTES % (AUTO) 20.2 % (20.5-51.5); MEAN CORPUSCULAR HEMOGLOBIN 32 pg (27-31); MEAN CORPUSCULAR HGB CONC 35 % (32-36); MEAN CORPUSCULAR VOLUME 90 fL (79.0-98.0); MONOCYTES # (AUTO) 0.6 K/uL (0.0-1.0); MONOCYTES % (AUTO) 7.6 % (1.7-9.3); NEUTROPHILS # (AUTO) 5.8 K/uL (1.8-7.7); PLATELET COUNT (AUTO) 171 K/uL (130-430); RED BLOOD CELL COUNT(AUTO) 4.11 MIL/uL (4.2-6.2); RED CELL DISTRIBUTION WIDTH 13.6 % (9.0-15.0); WHITE BLOOD COUNT (AUTO) 8.4 K/uL (4.8-10.8)
--- NOTE | 2022-06-24 07:20 | NUR ---
closing note endorsed care, stable
[2022-06-24 07:49] LABS: CREATININE 1.51 mg/dL (0.55-1.30)
[2022-06-24 09:49] VITALS: BP_SYST 168
[2022-06-24] MEDS: LOSARTAN POTASSIUM 50 MG TABLET (COZAAR) PO SCH (09:51)
[2022-06-24] MEDS: GABAPENTIN 300 MG CAPSULE PO SCH (09:51)
[2022-06-24] MEDS: METOPROLOL SUCCINATE 25 MG TAB.SR.24H (TOPROL XL) PO SCH (09:52)
[2022-06-24] MEDS: amLODIPine BESYLATE 10 MG TABLET PO SCH (09:52)
[2022-06-24] MEDS: cefTRIAXone 1 GM in D5W 50 ML IV SCH (09:53)
[2022-06-24] MEDS: HEPARIN SODIUM,PORCINE 5,000 UNITS/ML VIAL SUBCUT SCH (10:00)
[2022-06-24 13:43] VITALS: BP_SYST 151
[2022-06-24 14:30] VITALS: BP_SYST 146
== END 2022-06-24 14:55 | DRG 640 ==
LOC: SED 10:56 → SMU 14:16
PROVIDERS: ADMIT General Practice; ATTEND General Practice
DX: E86.0 Dehydration (principal); N17.0 Acute kidney failure with tubular necrosis; N39.0 Urinary tract infection, site not specified; E78.5 Hyperlipidemia, unspecified; E11.40 Type 2 diabetes mellitus with diabetic neuropathy, unspecified; E11.65 Type 2 diabetes mellitus with hyperglycemia; R53.81 Other malaise; Z20.822 Contact with and (suspected) exposure to COVID-19; I12.9 Hypertensive chronic kidney disease with stage 1 through stage 4 chronic kidney disease, or unspecified chronic kidney disease; E11.22 Type 2 diabetes mellitus with diabetic chronic kidney disease; N18.9 Chronic kidney disease, unspecified; Z91.14 Patient's other noncompliance with medication regimen
CPT/HCPCS: 36415; 71045; 80048; 80053; 81000; 82962; 83036; 83690; 83735; 84100; 84443; 84484; 85025; 93005; 96360; 97116-GP; 97530-GP; 99285; J0696; J1644; J1815; J2405; J3475; J7030; J7060